=== PATIENT | male | born 1960 | race Caucasian/White ===

== ENCOUNTER → 2023-12-03 06:20 | Day surgery (SDC) | payer MEDICARE, BC, SELFPAY | LOC: GI 06:20 | PROVIDERS: ATTENDING PHYSICIAN Surgery | DX: Z12.11 Encounter for screening for malignant neoplasm of colon (principal); Z86.010 Personal history of colon polyps; K57.30 Diverticulosis of large intestine without perforation or abscess without bleeding | CPT/HCPCS: G0105 ==